=== PATIENT | male | born 1980 | race Hispanic/Latino ===

== ENCOUNTER 2023-12-28 05:14 | Emergency (ER) | payer BC ==
--- OUTSIDE RECORDS SUMMARY | 2023-12-28 05:19 | XMS REPORT | Continuity of Care Document ---
Author Name Unknown Address [address] [facility] [address] [place] [address] [facility] Address [address] [facility] [address] [place] [address] Care Team Providers Care Industrial Recruiter Name Role Phone MARLENI YANES Primary Care Physician Unavaila GLO Patel Attending Clinician Unavailable Suzanne Linares Attending Clinician [phone] Glo Gilbert MD Attending Clinician [phone] TOYIN HARVEY Attending Clinician Unavailasad Harvey MD, Toyin Mcguire Attending Clinician [phone] Yuli Sullivan Attending Clinician [phone] YULI STEWART Attending Clinician Unavailable Doctor Unassigned, Otis Attending Clinician U fer Vidal RN, Gretta Johnson Attending Clinician Unavailab BRIGHT Rebollar Attending Clinician Unavailable Only, Ang Db Test Attending Clinician Unavailabl e Unknown, Attending Attending Clinician Unavailab le UNKNOWN, ATTENDING Attending Clinician Unavailab CATALINA Iglesias Attending Clinician Unavailable Catalina Thao Attending Clinician [phone] BLUE FLEMING Attending Clinician Unavailable Blue Fleming DO Attending Clinician [phone] Rj BARNEY, Carrie Sears Attending Clinician Unavaila dionna Wong RN, Abby Mcguire Attending Clinician Unavail charles Harden MD, Korina Chamberlain Attending Clinician [phone] Ilia Maya MD Attending Clinician [phone] Suzan Fong RN Attending Clinician Unavailable Lab, Adc Fam Pob I Attending Clinician UnavailLinette Kumar Attending Clinician [phone] LINETTE HOLCOMB Attending Clinician Unavailable Obey Barahona Attending Clinician [phone] OBEY BENJAMIN Attending Clinician Unavailable YULI STEWART Admitting Clinician Unavailable BLUE FLEMING Admitting Clinician Unavailable Dereck HOLLEY, Korina Chamberlain Admitting Clinician [phone] Payers Payer Name Policy Type Policy Number Effective Date Expirati on Date Source [facility] [id number] 2018 00:00:00 Problems Condition Name Condition Details Condition Category Status Onset Date Resolution Date Last Treatment Date Treating Clinician Comments Source Prolactino ma Prolactino ma Disease Active 806 00:00: 00 [facility] Morbid obesity with body mass index of 40.0-49.9 Morbid obesity with body mass index of 40.0-49.9 Disease Active 8-04 00:00: 00 [facility] COVID-19 COVID-19 Disease Active 8 00:00: 00 [facility] Allergies, Adverse Reactions, Alerts Allergy Name Allergy Type Status Severity Reaction(s) Onset Date Inactive Date Treating Clinician Comments Source NO KNOWN ALLERGIE S Drug Class Active [facility] Social History Social Habit Start Date Stop Date Quantity Comments Source Exposure to SARS-CoV-2 (event) Not sure [facility] Tobacco use and exposure 2021-04-30 00:00:00 2021-04-30 00:00:00 Never used [facility] Sex Assigned At 1980 00:00:00 1980 00:00:00 [facility] Smoking Status Start Date Stop Date Source Unknown if ever smoked [facility] Medications Ordered Medication Name Filled Medication Name Start Date Stop Date Current Medication? Ordering Clinician Indication Dosage Frequency Signature (SIG) Comments Components Source fluticasone propionate 50 mcg/actuati on nasal spray 06-22 00:00: 00 Yes [id number] 2{spray } Use 2 Sprays in each nostril daily. [facility] fexofenadin e-pseudoeph edrine (MARINO-D) 60-120 mg per tablet 06-22 00:00: 00 Yes [id number] 1{tbl} Take 1 tablet by mouth 2 (two) times daily. [facility] montelukast 10 mg tablet 05-11 00:00: 00 Yes 10mg Take 10 mg by mouth daily. [facility] clindamycin 300 mg capsule 2020-05 00:00: 00 Yes [facility] naproxen sodium (ANAPROX DS) 550 mg tablet 2020-05 00:00: 00 Yes [id number] 550mg Take 1 tablet by mouth 2 (two) times daily with meals. [facility] methylPREDN ISolone (MEDROL, ROSITA,) 4 mg tablets 2020-05 00:00: 00 Yes [id number] Take by mouth SEE-INSTRU CTIONS. follow package directions [facility] ergocalcife rol, vitamin d2, 1,250 mcg (50,000 unit) capsule 2020-05 00:00: 00 Yes [facility] azithromyci n 250 mg tablet 2020-05 00:00: 00 Yes TAKE 2 TABLETS BY MOUTH ON DAY 1, THEN 1 TABLET DAILY ON DAYS 2 TO 5. [facility] CABERGOLINE ORAL 12-09 19:15: 15 Yes Take by mouth. [facility] Vital Signs Vital Name Observation Time Observation Value Comments S sonia Systolic blood pressure 2021-06-22 15:31:00 120 mm[Hg] [facility] Diastolic blood pressure 2021-06-22 15:31:00 80 mm[Hg] [facility] Heart rate 2021-06-22 15:31:00 93 /min Anoop [facility] Body temperature 2021-06-22 15:31:00 36.56 Mabel [facility] Respiratory rate 2021-06-22 15:31:00 18 /min [facility] Body height 2021-06-22 15:31:00 175.3 cm [facility] Body weight 2021-06-22 15:31:00 120.203 kg [facility] BMI 2021-06-22 15:31:00 39.13 kg/m2 [facility] Oxygen saturation in Arterial blood by Pulse oximetry 2021-06-22 15:31:00 98 /min [place] [facility] Body height 2021-06-04 19:17:00 175.3 cm [facility] Body weight 2021-06-04 19:17:00 119.75 kg [facility] BMI 2021-06-04 19:17:00 38.99 kg/m2 [facility] Procedures Procedure Date / Time Performed Performing Clinicia n Source POCT MOLECULAR STREP 2021-06-22 15:37:00 Glo Gilbert [facility] XR WRIST 3+ VW RIGHT 2021-06-04 19:31:00 Valerio Harvey [facility] Encounters Start Date/Time End Date/Time Encounter Type Admission Type Attending Clinicians Care Facility Care Department Encounter ID Source 2021-03-01 10:23:04 Emergency [facility] [id number] [facility] 2021-06-22 09:40:00 2021-06-22 10:02:57 Outpatient GLO KIRBY [facility] [id number] [facility] 2021-06-22 09:40:00 2021-06-22 10:00:00 [facility] 1.2.840.114 350.1.13.10 4.2.7.2.686 [id number] [facility] 2021-06-04 13:25:00 2021-06-04 23:59:00 Outpatient TOYIN WEEMS [facility] [id number] [facility] 2021-06-04 13:25:00 2021-06-04 23:59:00 Hospital Encounter Toyin Harvey [facility] 1.2.840.114 350.1.13.10 4.2.7.2.686 [id number] [facility] 2021-06-04 13:30:00 2021-06-04 13:45:00 [facility] 1.2.840.114 350.1.13.10 4.2.7.2.686 [id number] [facility] 2021-06-04 13:25:00 2021-06-04 13:25:00 Outpatient TOYIN WEEMS [facility] [id number] [facility] 2021-05-23 00:00:00 2021-05-23 00:00:00 [facility] 1.2.840.114 350.1.13.10 4.2.7.2.686 [id number] [facility] 2021-05-21 14:00:00 2021-05-21 14:15:00 [facility] 1.2.840.114 350.1.13.10 4.2.7.2.686 [id number] [facility] 2021-05-21 14:00:00 2021-05-21 14:00:00 Outpatient R YULI STEWART [facility] [id number] [facility] 2021-05-21 14:00:00 2021-05-21 14:00:00 Outpatient R YULI STEWART [facility] [id number] [facility] 2021-05-21 14:00:00 2021-05-21 14:00:00 [id number] 2021-05-21 00:00:00 2021-05-21 00:00:00 Orders Only Doctor Unassigned, Otis [facility] 1.2840.114 350.1.13.10 4.2.7.2.686 [id number] [facility] 2021-05-03 08:37:47 2021-05-03 23:59:00 Outpatient R TERRY [facility] [id number] [facility] 2021-05-03 08:37:47 2021-05-03 23:59:00 Hospital Encounter [facility] 1.2840.114 350.1.13.10 4.2.7.2.686 [id number] [facility] 2021-05-03 00:00:00 2021-05-03 00:00:00 Telephone Toyin Harvey [facility] 1.2840.114 350.1.13.10 4.2.7.2.686 [id number] [facility] 2021-04-30 16:00:00 2021-04-30 16:30:00 Office Visit [facility] 1.2.840.114 350.1.13.10 4.2.7.2.686 [id number] [facility] 2021-04-30 16:00:00 2021-04-30 16:00:00 Outpatient R TERRY [facility] [id number] [facility] 2021-04-30 00:00:00 2021-04-30 00:00:00 Letter (Out) Gretta Vidal [facility] 1.2840.114 350.1.13.10 4.2.7.2.686 [id number] [facility] 2021-04-29 09:00:00 2021-04-29 12:47:33 Outpatient R BRIGHT KUMARI [facility] [id number] [facility] 2021-04-29 09:00:00 2021-04-29 09:15:00 Laboratory Only Only, Ang Db Test Unknown, Attending [facility] 1.2.840.114 350.1.13.10 4.2.7.2.686 [id number] [facility] 2021-04-29 09:00:00 2021-04-29 09:00:00 Outpatient R UNKNOWN, ATTENDING [facility] [id number] [facility] 2021-04-24 09:15:00 2021-04-24 09:33:29 Outpatient R CATALINA SHNAKAR [facility] [id number] [facility] 2021-04-24 09:15:00 2021-04-24 09:33:29 Laboratory Only Only, Ang Db Test Vonnie [facility] 1..840.114 350.1.13.10 4.2.7.2.686 [id number] [facility] 2021-04-24 00:00:00 2021-04-24 00:00:00 Orders Only Doctor Unassigned, Otis [facility] 1.840.114 350.1.13.10 4.2.7.2.686 [id number] [facility] 2021-04-23 08:36:00 2021-04-23 10:11:00 Emergency X BLUE FLEMING [facility] E[facility] [id number] [facility] 2021-04-23 08:36:00 2021-04-23 10:11:00 Emergency Blue Fleming [facility] 1.840.114 350.1.13.10 4.2.7.2.686 [id number] [facility] 2021-04-23 08:36:00 2021-04-23 10:11:00 Emergency X BLUE FLEMING [facility] E[facility] [id number] [facility] 2021-04-23 00:00:00 2021-04-23 00:00:00 Orders Only Doctor Unassigned, Otis [facility] 1.2840.114 350.1.13.10 4.2.7.2.686 [id number] [facility] 2021-01-26 00:00:00 2021-01-26 00:00:[address] La Rosa [facility] 1.2.114 350.1.13.10 4.2.7.2.686 [id number] [facility] 2021 15:03:47 2021 15:18:47 Laboratory Only Only, Ang Db Test Vonnie [facility] 1.284.114 350.1.13.10 4.2.7.2.686 [id number] [facility] 2021 15:00:00 2021 15:00:00 Outpatient R [facility] [id number] [facility] 2019-12-12 00:00:00 2019-12-12 00:00:00 Transition of Care Abby Wong 1..840.114 350.1.13.10 4.2.7.2.686 [id number] 2019-12-12 00:00:00 2019-12-12 00:00:00 Transition of Care Abby Wong 1.840.114 350.1.13.10 4.2.7.2.686 [id number] [facility] 2019-12-06 10:31:00 2019-12-10 19:15:00 Hospital Encounter Blue Fleming, Korina Maya, [facility] 1.2.840.114 350.1.13.10 4.2.7.2.686 [id number] 2019-12-06 10:31:00 2019-12-10 19:15:00 Hospital Encounter Fleming Blue Harden, [facility], [facility] 1.2.840.114 350.1.13.10 4.2.7.2.686 [id number] [facility] 2019-11-21 00:00:00 2019-11-21 00:00:00 Telephone [facility] 1.2.840.114 350.1.13.10 4.2.7.2.686 [id number] 2019-11-21 00:00:00 2019-11-21 00:00:00 Telephone [facility] 1.2.840.114 350.1.13.10 4.2.7.2.686 [id number] [facility] 2019-11-18 08:37:37 2019-11-18 08:57:37 Laboratory Only Lab, [facility] One 1.2.840.114 350.1.13.10 4.2.7.2.686 [id number] 2019-11-18 08:37:37 2019-11-18 08:57:37 Laboratory Only Lab, [facility] 1.2840.114 350.1.13.10 4.2.7.2.686 [id number] [facility] 2019-11-18 08:40:00 2019-11-18 08:40:00 [facility] [id number] 2019-11-13 00:00:00 2019-11-13 00:00:00 Telephone Sourav [facility] 1.2.840.114 350.1.13.10 4.2.7.2.686 [id number] [facility] 2019-11-13 00:00:00 2019-11-13 00:00:00 Telephone Sourav [facility] 1.2.840.114 350.1.13.10 4.2.7.2.686 [id number] 2019-11-12 12:15:25 2019-11-12 12:35:25 Laboratory Only Lab, [facility] Maninder Benjamin [facility] One 1.2.840.114 350.1.13.10 4.2.7.2.686 [id number] [facility] 2019-11-12 12:15:25 2019-11-12 12:35:25 Laboratory Only Lab, [facility] Office Building One 1.2.840.114 350.1.13.10 4.2.7.2.686 [id number] 2019-11-12 12:20:00 2019-11-12 12:20:[address] [facility] [id number] [facility] 2019-11-12 00:00:00 2019-11-12 00:00:00 Letter (Out) Doctor Unassigned, Otis [facility] 1.2.840.114 350.1.13.10 4.2.7.2.686 [id number] [facility] 2019-11-12 00:00:00 2019-11-12 00:00:00 Letter (Out) Doctor Unassigned, Otis [facility] 1.2.840.114 350.1.13.10 4.2.7.2.686 [id number] Results Test Description Test Time Test Comments Results Result Co mments Source [facility]
[2023-12-28 06:35] LABS: Absolute Basophils 0.1 K/uL (0-0.5); Absolute Eosinophils 0.1 K/uL (0-0.5); Absolute Lymphocytes (CBC) 2.6 K/uL (0.7-4.9); Absolute Monocytes 0.9 K/uL (0.1-1.3); Absolute Neutrophil 6.4 K/uL (1.8-8.0); Basophils % 0.6 % (0-1.3); Eosinophils % 1.5 % (0-4.4); Hemoglobin 14.2 g/dL (13.6-17.9); Lymphocytes % 25.5 % (15.3-44.8); MCH 31.8 pg (27.0-35.0); MCHC 33.7 g/dL (32.0-36.0); MCV 94.2 fL (80-100); MPV 11.3 fL (7.6-11.3); Monocytes % 9.1 % (3.3-12.3); Neutrophils % 63.3 % (41.7-73.7); Platelets 199 thou/uL (152-406); RBC Red Blood Cell Count 4.45 M/uL (4.33-5.43); Red Cell Distribution Width 13.5 % (12.1-15.2)
[2023-12-28 06:50] LABS: Albumin 3.4 g/dL (3.4-5.0); Albumin/Globulin Ratio 0.9 (1.1-1.8); Anion Gap 6.9 mEq/L (5.0-15.0); Bilirubin Total 0.5 mg/dL (0.2-1.0); Globulin 3.9 g/dL (2.3-3.5); Potassium 3.9 mEq/L (3.5-5.1); Protein, Total 7.3 g/dL (6.4-8.2)
--- NOTE | 2023-12-28 06:56 | ER ---
Nurse's Notes [facility] Name: Abel Cruz Age: 43 yrs Sex: Male : 1980 Arrival Date: 12/28/2023 Time: 05:14 Bed 7 Private MD: Diagnosis: Cellulitis to left lower extremity Presentation: 12/27 05:45 Chief complaint: Patient states: WOUND ON LEFT LEG FOR 2 MONTHS, NOT GETTING ANY vc1 BETTER. Coronavirus screen: Client denies travel out of the [place] in the last 14 days. At this time, the client does not indicate any symptoms associated with coronavirus-19. Ebola Screen: Patient negative for fever greater than or equal to 101.5 degrees Fahrenheit, and additional compatible Ebola Virus Disease symptoms Patient denies exposure to infectious person. Patient denies travel to an Ebola-affected area in the 21 days before illness onset. No symptoms or risks identified at this time. Initial Sepsis Screen: Does the patient meet any 2 criteria? No. Patient's initial sepsis screen is negative. Does the patient have a suspected source of infection? No. Patient's initial sepsis screen is negative. Risk Assessment: Do you want to hurt yourself or someone else? Patient reports no desire to harm self or others. Onset of symptoms is unknown. 05:45 Method Of Arrival: Ambulatory vc1 05:45 Acuity: JASEN 3 vc1 Triage Assessment: 05:48 General: Appears in no apparent distress. comfortable, obese, well developed, Behavior vc1 is calm, cooperative, appropriate for age. Pain: Denies pain. EENT: No deficits noted. No signs and/or symptoms were reported regarding the EENT system. Neuro: Level of Consciousness is awake, alert, obeys commands, Oriented to person, place, time, situation, Appropriate for age. Cardiovascular: Patient's skin is warm and dry. Respiratory: Airway is patent Respiratory effort is even, unlabored, Respiratory pattern is regular, symmetrical, Breath sounds are clear bilaterally. GI: Abdomen is round non-distended. : No deficits noted. No signs and/or symptoms were reported regarding the genitourinary system. Derm: Skin is intact, Wound noted left calf Wound is DRAINING NOTED. Musculoskeletal: Circulation, motion, and sensation intact. Range of motion: intact in all extremities. Historical: - Allergies: 05:47 No Known Allergies; vc1 - Home Meds: 05:47 None [Active]; vc1 - PMHx: 05:47 None; vc1 - PSHx: 05:47 GASTRIC BYPASS; ARCHANA DE LUNA; vc1 - Immunization history:: Client reports receiving the 2nd dose of the Covid vaccine. - Infectious Disease History:: Denies. - Social history:: Smoking status: Reported history of juuling and/or vaping. - Family history:: not pertinent. Screenin:48 [facility] ED Fall Risk Assessment (Adult) History of falling in the last 3 months, vc1 including since admission No falls in past 3 months (0 pts) Confusion or Disorientation No (0 pts) Intoxicated or Sedated No (0 pts) Impaired Gait No (0 pts) Mobility Assist Device Used No (0 pt) Altered Elimination No (0 pt) Score/Fall Risk Level 0 - 2 = Low Risk Oriented to surroundings, Maintained a safe environment, Educated pt \T\ family on fall prevention, incl call for assistance when getting out of bed. Abuse screen: Denies threats or abuse. Nutritional screening: No deficits noted. Tuberculosis screening: No symptoms or risk factors identified. Assessment: 06:36 General: Appears in no apparent distress. Behavior is calm, cooperative. Pain: al5 Complains of pain in left leg and left calf. Neuro: Level of Consciousness is awake, alert, obeys commands, Oriented to person, place, time, situation. Cardiovascular: Patient's skin is warm and dry. Respiratory: Airway is patent Respiratory effort is even, unlabored, Respiratory pattern is regular, symmetrical. GI: No signs and/or symptoms were reported involving the gastrointestinal system. : No signs and/or symptoms were reported regarding the genitourinary system. EENT: No signs and/or symptoms were reported regarding the EENT system. Derm: Wound noted left calf Wound is not healing for past couple of months. Musculoskeletal: No signs and/or symptoms reported regarding the musculoskeletal system. Vital Signs: 05:45 BP 132 / 93; Pulse 76; Resp 18; Temp 97; Pulse Ox 100% ; Weight 145.15 kg; Height 5 ft. vc1 10 in. ; Pain 0/10; 05:45 BP 134 / 83; Pulse 75; Resp 18; Pulse Ox 98% on R/A; al5 06:00 BP 106 / 88; Pulse 79; Resp 18; Pulse Ox 97% on R/A; al5 06:30 BP 116 / 81; Pulse 67; Resp 18; Pulse Ox 97% on R/A; al5 05:45 Body Mass Index 45.91 (145.15 kg, 177.8 cm) vc1 05:45 Pain Scale: Adult vc1 ED Course: 05:34 Patient arrived in ED. jj6 05:34 Donovan Son MD is Attending Physician. rt 05:47 Triage completed. vc1 05:47 Arm band placed on right wrist. vc1 05:48 Patient has correct armband on for positive identification. Bed in low position. Call vc1 light in reach. Pulse ox on. NIBP on. 06:11 Vicky Brooks, RN is Primary Nurse. al5 06:27 Tib Fib Left XRAY In Process Unspecified. EDMS 06:35 No provider procedures requiring assistance completed. Initial lab(s) drawn, by dc, al5 sent to lab. Inserted saline lock: 20 gauge in right antecubital area, using aseptic technique. Blood collected. Flushed with 10 mL NS. 06:58 Provided Education on: discharge. al5 06:58 IV discontinued, intact, bleeding controlled, No redness/swelling at site. Pressure al5 dressing applied. Administered Medications: No medications were administered Medication: 05:48 VIS not applicable for this client. vc1 Outcome: 06:56 Discharge ordered by . rt 06:58 Discharged to home ambulatory, al5 06:58 Condition: good 06:58 Discharge instructions given to patient, Instructed on discharge instructions, follow up and referral plans. Demonstrated understanding of instructions, follow-up care, 07:05 Patient left the ED. ko1 Signatures: Dispatcher [employer] EDPR Aixa Maegan jj6 Tesha Toney RN RN vc1 Shelley Chery RN RN ko1 Donovan Son MD MD rt Vicky Brooks RN RN al5
--- NOTE | 2023-12-28 06:56 | EDPHYS ---
Physician Documentation [facility] Name: Abel Cruz Age: 43 yrs Sex: Male : 1980 Arrival Date: 12/28/2023 Time: 05:14 Bed 7 Private MD: ED Physician Donovan Son HPI: 12/27 06:09 This 43 yrs old Male presents to ER via Ambulatory with complaints of Wound rt Infection. 06:09 Patient presents to the ED with a wound to the posterior calf. Is been present for rt about 2 months. States that the past few days, started to drain. The patient states has not gotten better. Reports mild pain to the area. Denies any other complaints, symptoms are moderate in severity, no other aggravating or alleviating factors.. Historical: - Allergies: 05:47 No Known Allergies; vc1 - Home Meds: 05:47 None [Active]; vc1 - PMHx: 05:47 None; vc1 - PSHx: 05:47 GASTRIC BYPASS; NATALIEMY LEVYCK; vc1 - Immunization history:: Client reports receiving the 2nd dose of the Covid vaccine. - Infectious Disease History:: Denies. - Social history:: Smoking status: Reported history of juuling and/or vaping. - Family history:: not pertinent. ROS: 06:09 Constitutional: Negative for fever, chills, and weight loss, Cardiovascular: Negative rt for chest pain, palpitations, and edema, Respiratory: Negative for shortness of breath, cough, wheezing, and pleuritic chest pain, Abdomen/GI: Negative for abdominal pain, nausea, vomiting, diarrhea, and constipation, Neuro: Negative for headache, weakness, numbness, tingling, and seizure, 06:09 Skin: Positive for Wound, cellulitis, Exam: 06:09 Constitutional: This is a well developed, well nourished patient who is awake, alert, rt and in no acute distress. Head/Face: Normocephalic, atraumatic. Chest/axilla: Normal chest wall appearance and motion. Nontender with no deformity. No lesions are appreciated. Cardiovascular: Regular rate and rhythm with a normal S1 and S2. No gallops, murmurs, or rubs. Normal PMI, no JVD. No pulse deficits. Respiratory: Lungs have equal breath sounds bilaterally, clear to auscultation and percussion. No rales, rhonchi or wheezes noted. No increased work of breathing, no retractions or nasal flaring. Abdomen/GI: Soft, non-tender, with normal bowel sounds. No distension or tympany. No guarding or rebound. No evidence of tenderness throughout. Neuro: Awake and alert, GCS 15, oriented to person, place, time, and situation. Cranial nerves II-XII grossly intact. Motor strength 5/5 in all extremities. Sensory grossly intact. Cerebellar exam normal. Normal gait. 06:09 Musculoskeletal/extremity: There is about a 4 cm area of erythema to the posterior calf. There is about a 1 cm wound with purulent drainage. No further cellulitis, minimal edema noted, pulses, motor, sensation intact. Vital Signs: 05:45 BP 132 / 93; Pulse 76; Resp 18; Temp 97; Pulse Ox 100% ; Weight 145.15 kg; Height 5 ft. vc1 10 in. ; Pain 0/10; 05:45 BP 134 / 83; Pulse 75; Resp 18; Pulse Ox 98% on R/A; al5 06:00 BP 106 / 88; Pulse 79; Resp 18; Pulse Ox 97% on R/A; al5 06:30 BP 116 / 81; Pulse 67; Resp 18; Pulse Ox 97% on R/A; al5 05:45 Body Mass Index 45.91 (145.15 kg, 177.8 cm) vc1 05:45 Pain Scale: Adult vc1 MDM: 05:46 Patient medically screened. rt 06:57 Differential diagnosis: Cellulitis, wound, diabetes. Data reviewed: vital signs, nurses rt notes, lab test result(s), radiologic studies. Consideration of Admission/Observation Escalation of care including admission/observation considered. Wound is small, area of cellulitis small as well. No signs of gangrene, osteomyelitis. Patient meets no SIRS criteria. Stable for outpatient care. Independent interpretation of the following test(s) in the Emergency Department X-Ray: My interpretation is No signs of osteomyelitis, gas-forming organism on my interpretation of x-ray images. Counseling: I had a detailed discussion with the patient and/or guardian regarding the historical points, exam findings, and any diagnostic results supporting the discharge/admit diagnosis, lab results, radiology results, the need for outpatient follow up, to return to the emergency department if symptoms worsen or persist or if there are any questions or concerns that arise at home. 12/27 05:50 Order name: CBC with Diff; Complete Time: 06:45 rt 12/27 05:50 Order name: CMP; Complete Time: 06:51 rt 12/27 06:14 Order name: Wound Culture rt 12/27 05:50 Order name: Tib Fib Left XRAY rt 12/27 05:50 Order name: Wound Care; Complete Time: 07:05 rt Administered Medications: No medications were administered Disposition Summary: 12/28/23 06:56 Discharge Ordered Notes: Location: Home rt Problem: an ongoing problem rt Symptoms: are unchanged rt Condition: Stable rt Diagnosis - Cellulitis to left lower extremity rt Followup: rt - With: Private Physician - When: 2 - 3 days - Reason: Discharge Instructions: - Discharge Summary Sheet rt - Cellulitis, Adult rt Forms: - Medication Reconciliation Form rt - Antibiotic Education rt - Prescription Opioid Use rt - Patient Portal Instructions rt - Leadership Thank You Letter rt Prescriptions: - Doxycycline Hyclate 100 mg Oral Tablet - take 1 tablet ORAL route every 12 hours; 20 tablet; Refills: 0, Product rt Selection Permitted Signatures: Dispatcher [employer] Tesha Adrian RN RN vc1 Donovan Son MD MD rt
[2023-12-28 07:11] VITALS: TEMP 97
[2023-12-28 07:12] VITALS: O2SAT 97
[2023-12-28 07:13] VITALS: BP 116/81
--- NOTE | 2023-12-28 08:02 | RAD REPORT ---
EXAM DESCRIPTION: RAD - Tib Fib Left - 12/28/2023 6:26 am CLINICAL HISTORY: infection COMPARISON: No comparisons TECHNIQUE: Left tibia and fibula, 2 views. FINDINGS: No fracture is identified. Subtle lucency at the margin of the medial malleolus could rela te to a skin fold. Please correlate for any overlying skin/soft tissue abnormality. There is no dislocation or periosteal reaction noted. Soft tissue irregularity along the dorsal dista l lower leg. No foreign body or other soft tissue abnormality. IMPRESSION: Dorsal distal lower leg soft tissue irregularity, without evidence of underlying acute o sseous abnormality. Subtle lucency at the margin of the medial malleolus could relate to a skin fold. Please correlate fo r any overlying skin/soft tissue abnormality.
== END 2023-12-28 07:05 | disposition home or self-care (01) ==
LOC: ER 05:14
DX: L03.116 Cellulitis of left lower limb (principal)
CPT/HCPCS: 36415; 80053; 85025; 87070; 87077; 87186; 87205; 99284